=== PATIENT | female | born 1965 | race Caucasian/White ===

== ENCOUNTER 2016-08-16 23:06 | Emergency (ER) | payer OTHER ==
[~2016-08-16] VITALS: Ht 160 cm; Wt 72.6 kg
--- NOTE | 2016-08-17 00:10 | NUR ---
PT BIB SELF C/O HIGH BP TONIGHT AT WORK, SBP 170'S, WITH NAUSEA AND DIZZINESS. NAUSEA RESOLVED W[employer]IR[employer], NOW DIZZY ONLY WHEN WALKING. SKIN WARM NONDIAPHORETIC. RESP EVEN UNLABORED. NO NEURO DEFICITS. NAD NOTED. AMBULATORY WITH STEADY GAIT. PT REPORTS HER USUAL SBP IS 120 "MAX". IN ER BED 14 ON MONITOR.
--- NOTE | 2016-08-17 00:57 | NUR ---
PT ASKING IF SHE CAN LEAVE. NOTED WITH NO HTN AT THIS TIME. MD NOTIFIED.
--- NOTE | 2016-08-17 01:01 | NUR ---
PT NOW FEELS NAUSEOUS AND DIZZY DURING MD EXAM. AWAITING ORDERS.
--- NOTE | 2016-08-17 01:04 | NUR ---
EMT AT BEDSIDE FOR EKG.
[2016-08-17] MEDS ORDERED: ONDANSETRON 4 MG TAB.RAPDIS ONE (01:05)
[2016-08-17 01:22] LABS: BASOPHILS % (AUTO) 0.6 % (0.0-2.0); EOSINOPHILS # (AUTO) 0.3 /CMM (0.0-0.7); EOSINOPHILS % (AUTO) 4.2 % (0.0-6.0); HEMATOCRIT 42 % (33-45); LYMPHOCYTES # (AUTO) 2.3 /CMM (0.8-4.8); LYMPHOCYTES % (AUTO) 34.7 % (20.0-44.0); MEAN CORPUSCULAR HEMOGLOBIN 29 PG (26.0-33.0); MEAN CORPUSCULAR HGB CONC 34 g/dl (31.0-36.0); MEAN CORPUSCULAR VOLUME 84 fL (82-100); MONOCYTES # (AUTO) 0.5 /CMM (0.1-1.30); MONOCYTES % (AUTO) 6.9 % (2.0-12.0); NEUTROPHILS # (AUTO) 3.6 /CMM (1.8-8.9); NEUTROPHILS % (AUTO) 53.6 % (43.0-81.0); PLATELET COUNT (AUTO) 296 /CMM (150-450); RDW COEFFICIENT OF VARIATION 12.3 (11.5-15.0); RED BLOOD CELL COUNT(AUTO) 4.93 MIL/uL (4.0-5.2); WHITE BLOOD COUNT (AUTO) 6.8 K/uL (4.3-11.0)
[2016-08-17] MEDS ORDERED: ONDANSETRON 4 MG TAB.RAPDIS SL ONE (01:30)
[2016-08-17 01:31] LABS: CALCIUM, SERUM 9.4 mg/dL (8.5-10.1); CREATININE 0.6 mg/dL (0.6-1.3); POTASSIUM 3.7 mmol/L (3.5-5.1)
--- NOTE | 2016-08-17 02:11 | NUR ---
Patient is resting comfortably in bed with eyes closed. Easily aroused. VSS
--- NOTE | 2016-08-17 02:47 | NUR ---
Patient discharged to home in stable condition. Written and verbal after care instructions given. Patient verbalizes understanding of instruction. AMBULATORY WITH STEADY GAIT.
[2016-08-17 03:01] VITALS: BP 113/75
== END 2016-08-17 03:04 | disposition home or self-care (01) ==
LOC: ER 23:14
DX: I10 Essential (primary) hypertension (principal)
CPT/HCPCS: 36415; 80048-TC; 82962-TC; 85025-TC; A4606; Q0162; Z7610